=== PATIENT | male | born 1960 | race Caucasian/White ===

== ENCOUNTER 2022-07-04 06:50 | Day surgery (SDC) | payer OTHER ==
[2022-06-29 09:42] VITALS: BMI 32.8
[2022-07-04] MEDS: CELECOXIB 200 MG CAPSULE PO ONE ×2 (06:57→21:14)
[2022-07-04] MEDS ORDERED: ceFAZolin SODIUM 1 GM VIAL ONE ×2 (07:16→07:25)
[2022-07-04] MEDS ORDERED: PROPOFOL 80 ML ONE (07:23)
[2022-07-04] MEDS ORDERED: MIDAZOLAM HCL 2 MG/2 ML SINGLE DOSE VIAL ONE ×2 (07:24)
[2022-07-04] MEDS ORDERED: VANCOMYCIN 1,000 MG VIAL (RESTRICTED TO ID ONLY) ONE (07:28)
[2022-07-04] MEDS ORDERED: BUPIVACAINE LIPOSOME/PF (EXPAREL) 266 MG/20 ML VIAL ONE (07:40)
[2022-07-04] MEDS ORDERED: BUPIVACAINE HCL/PF 0.5% (5 MG/ML) 30 ML VIAL IJ ONE (07:40)
[2022-07-04] MEDS ORDERED: TRANEXAMIC ACID 1000 MG/10 ML VIAL IVPUSH ONE (08:00)
[2022-07-04] MEDS ORDERED: ONDANSETRON 4 MG/2 ML VIAL IVPUSH PRN ×2 (08:00→10:23)
[2022-07-04] MEDS ORDERED: LACTATED RINGERS SOLUTION 1,000 ML IV SCH ×2 (08:00→10:30)
[2022-07-04] MEDS ORDERED: CEFAZOLIN 2 GM in DEXTROSE 5%-WATER - 50 ML IVPB ONE (08:00)
[2022-07-04] MEDS ORDERED: BUPIVACAINE HCL/PF 0.5% (5MG/ML) 10 ML VIAL ONE (08:01)
[2022-07-04] MEDS ORDERED: SUCCINYLCHOLINE CHLORIDE 200 MG/10 ML SYRINGE ONE (08:24)
[2022-07-04] MEDS ORDERED: ONDANSETRON 4 MG/2 ML VIAL ONE (09:33)
[2022-07-04] MEDS ORDERED: DEXAMETHASONE SOD PHOSPHATE 4 MG/1 ML VIAL ONE (09:33)
[2022-07-04] MEDS ORDERED: oxyCODONE HCL 5 MG TABLET PO PRN ×2 (10:23→10:27)
[2022-07-04] MEDS ORDERED: ACETAMINOPHEN 500 MG TABLET (FP) ONE (10:51)
[2022-07-04] MEDS: ACETAMINOPHEN 500 MG TABLET (FP) PO SCH ×2 (10:55→17:30)
[2022-07-04] MEDS: CEFAZOLIN SODIUM 2 GM in DEXTROSE 5%-WATER 100 ML IVPB SCH (15:15)
[2022-07-04] MEDS: oxyCODONE HCL 5 MG TABLET PO PRN ×3 (15:16→21:17)
[2022-07-04] MEDS: SENNOSIDES/DOCUSATE COMBO (SENNA PLUS) TABLET (UD) PO SCH ×2 (19:55→21:16)
[2022-07-04] MEDS: MULTIVITAMINS (DAILY MVI) TABLET (FP) PO SCH (19:55)
[2022-07-04] MEDS: PANTOPRAZOLE 40 MG TABLET PO SCH (19:55)
[2022-07-04] MEDS: ATORVASTATIN CA 40 MG TABLET (FP) PO SCH (21:16)
[2022-07-04] MEDS: UMECLIDINIUM/VILANTEROL (ANORO) 62.5/25 MCG INHALER IH SCH (21:18)
[2022-07-04] MEDS: DORZOLAMIDE 2% HCL OPHTHALMIC SOLUTION 10 ML BOTTLE OU SCH (22:35)
[2022-07-05] MEDS: CEFAZOLIN SODIUM 2 GM in DEXTROSE 5%-WATER 100 ML IVPB SCH (00:08)
[2022-07-05] MEDS: oxyCODONE HCL 5 MG TABLET PO PRN ×7 (00:09→21:04)
[2022-07-05] MEDS: ACETAMINOPHEN 500 MG TABLET (FP) PO SCH ×4 (00:10→18:27)
[2022-07-05] MEDS: ASPIRIN 325 MG TABLET PO SCH (07:47)
[2022-07-05 08:13] LABS: HEMATOCRIT 42.1 % (35.4-49); HEMOGLOBIN 14.2 G/dL (11.7-16.9); MCH 30.2 pg (25.7-33.7); MCHC 33.8 g/dl (32.0-35.9); MEAN CELL VOLUME 89.4 fl (80-96); MEAN PLT VOLUME 7.1 fl (7.5-11.1); PLATELET COUNT 185.3 10^3/uL (134-434); RBC 4.71 10^6/uL (4.00-5.60)
[2022-07-05] MEDS: SENNOSIDES/DOCUSATE COMBO (SENNA PLUS) TABLET (UD) PO SCH ×2 (09:06→21:04)
[2022-07-05] MEDS: MULTIVITAMINS (DAILY MVI) TABLET (FP) PO SCH (09:06)
[2022-07-05] MEDS: PANTOPRAZOLE 40 MG TABLET PO SCH (09:06)
[2022-07-05] MEDS: DORZOLAMIDE 2% HCL OPHTHALMIC SOLUTION 10 ML BOTTLE OU SCH ×2 (09:23→21:06)
[2022-07-05 20:55] VITALS: RESP 18
[2022-07-05] MEDS: ATORVASTATIN CA 40 MG TABLET (FP) PO SCH (21:04)
[2022-07-05] MEDS: UMECLIDINIUM/VILANTEROL (ANORO) 62.5/25 MCG INHALER IH SCH (21:05)
[2022-07-06] MEDS: oxyCODONE HCL 5 MG TABLET PO PRN ×3 (00:49→09:08)
[2022-07-06] MEDS: ACETAMINOPHEN 500 MG TABLET (FP) PO SCH ×3 (02:57→11:30)
[2022-07-06] MEDS: ASPIRIN 325 MG TABLET PO SCH (08:18)
[2022-07-06] MEDS ORDERED: diphenhydrAMINE HCL 25 MG CAPSULE (FP) PO ONE (08:31)
[2022-07-06 08:47] LABS: HEMATOCRIT 42.1 % (35.4-49); HEMOGLOBIN 13.9 G/dL (11.7-16.9); MCH 29.5 pg (25.7-33.7); MCHC 32.9 g/dl (32.0-35.9); MEAN CELL VOLUME 89.5 fl (80-96); MEAN PLT VOLUME 7.6 fl (7.5-11.1); RDW 14.5 % (11.9-15.9); WHITE BLOOD COUNT 12.9 10^3/uL (4.0-10.8)
[2022-07-06 09:08] VITALS: BP 135/82; PULSE 77; TEMP 97.7
[2022-07-06] MEDS: SENNOSIDES/DOCUSATE COMBO (SENNA PLUS) TABLET (UD) PO SCH (09:08)
[2022-07-06] MEDS: MULTIVITAMINS (DAILY MVI) TABLET (FP) PO SCH (09:08)
[2022-07-06] MEDS: PANTOPRAZOLE 40 MG TABLET PO SCH (09:08)
[2022-07-06] MEDS: DORZOLAMIDE 2% HCL OPHTHALMIC SOLUTION 10 ML BOTTLE OU SCH (09:14)
== END 2022-07-06 11:58 | disposition home or self-care (01) ==
LOC: FASUSAT 06:50 → FM/S 06:50 → EDSTATUS 11:00 → FM/S 11:47 → FASUSAT 07-06 11:58
PROVIDERS: ATTEND Orthopaedic Surgery
PROC: 0SRC0J9 Replacement of Right Knee Joint with Synthetic Substitute, Cemented, Open Approach (ICD-10-PCS; principal; 2022-07-04 08:27)
DX: M17.11 Unilateral primary osteoarthritis, right knee (principal)
CPT/HCPCS: 20985; 27447; C1776; S2900; 36415; 73560-TC-RT-FY; 85027; 94760; 97116-GP; 97161-GP; C1713

== ENCOUNTER 2023-03-27 06:10 | Day surgery (SDC) | payer OTHER ==
[2023-03-23 17:15] VITALS: BMI 32.1
[2023-03-27] MEDS ORDERED: ceFAZolin SODIUM 1 GM VIAL ONE ×2 (07:23→08:17)
[2023-03-27] MEDS ORDERED: THROMBIN (BOVINE) 5,000 UNIT VIAL TP ONE (07:23)
[2023-03-27] MEDS ORDERED: MIDAZOLAM HCL 2 MG/2 ML SINGLE DOSE VIAL ONE (07:42)
[2023-03-27] MEDS ORDERED: BUPIVACAINE LIPOSOME/PF (EXPAREL) 266 MG/20 ML VIAL ONE (07:42)
[2023-03-27] MEDS ORDERED: BUPIVACAINE HCL/PF 0.5% (5MG/ML) 10 ML VIAL ONE (07:42)
[2023-03-27] MEDS ORDERED: ONDANSETRON 4 MG/2 ML VIAL IVPUSH PRN ×2 (07:46→10:12)
[2023-03-27] MEDS ORDERED: TRANEXAMIC ACID 1000 MG/10 ML VIAL IVPUSH ONE (07:46)
[2023-03-27] MEDS ORDERED: CEFAZOLIN 2 GM in DEXTROSE 5%-WATER - 50 ML IVPB ONE (07:46)
[2023-03-27] MEDS ORDERED: BUPIVICAINE 0.25%/MORPH PF/KETOROLAC - 51ML DISP.SYRINGE IA ONE (07:46)
[2023-03-27] MEDS ORDERED: ALBUTEROL SO4 HFA INHALER IH PRN (07:47)
[2023-03-27] MEDS ORDERED: LACTATED RINGERS SOLUTION 1,000 ML IV SCH (08:00)
[2023-03-27] MEDS ORDERED: DEXAMETHASONE SOD PHOSPHATE 4 MG/1 ML VIAL ONE (08:17)
[2023-03-27] MEDS ORDERED: SUCCINYLCHOLINE CHLORIDE 200 MG/10 ML SYRINGE ONE (08:18)
[2023-03-27] MEDS ORDERED: PROPOFOL 40 ML ONE (08:18)
[2023-03-27] MEDS ORDERED: PROPOFOL 20 ML ONE (09:19)
[2023-03-27] MEDS: MULTIVITAMINS (DAILY MVI) TABLET (FP) PO SCH (12:23)
[2023-03-27] MEDS: PANTOPRAZOLE 40 MG TABLET PO SCH (12:23)
[2023-03-27] MEDS: SENNOSIDES/DOCUSATE COMBO (SENNA PLUS) TABLET (UD) PO SCH ×2 (12:23→21:30)
[2023-03-27] MEDS: CEFAZOLIN SODIUM 2 GM in SODIUM CHLORIDE 100 ML IVPB SCH ×2 (16:30→23:50)
[2023-03-27] MEDS: oxyCODONE HCL 5 MG TABLET PO PRN ×2 (16:31→21:36)
[2023-03-27 20:14] VITALS: RESP 18
[2023-03-27] MEDS: ATORVASTATIN CA 40 MG TABLET (FP) PO SCH (21:30)
[2023-03-27] MEDS: UMECLIDINIUM/VILANTEROL (ANORO) 62.5/25 MCG INHALER IH SCH (21:35)
[2023-03-27] MEDS: DORZOLAMIDE 2% HCL OPHTHALMIC SOLUTION 10 ML BOTTLE OU SCH (21:36)
[2023-03-28] MEDS: oxyCODONE HCL 5 MG TABLET PO PRN ×5 (06:51→21:02)
[2023-03-28] MEDS: ASPIRIN 325 MG TABLET PO SCH (08:24)
[2023-03-28] MEDS: PANTOPRAZOLE 40 MG TABLET PO SCH (09:27)
[2023-03-28] MEDS: MULTIVITAMINS (DAILY MVI) TABLET (FP) PO SCH (09:27)
[2023-03-28] MEDS: SENNOSIDES/DOCUSATE COMBO (SENNA PLUS) TABLET (UD) PO SCH ×2 (09:27→21:01)
[2023-03-28] MEDS: DORZOLAMIDE 2% HCL OPHTHALMIC SOLUTION 10 ML BOTTLE OU SCH ×2 (09:28→21:01)
[2023-03-28] MEDS: UMECLIDINIUM/VILANTEROL (ANORO) 62.5/25 MCG INHALER IH SCH (20:59)
[2023-03-28] MEDS: ATORVASTATIN CA 40 MG TABLET (FP) PO SCH (21:01)
[2023-03-29] MEDS: oxyCODONE HCL 5 MG TABLET PO PRN ×3 (00:15→07:53)
[2023-03-29] MEDS: ASPIRIN 325 MG TABLET PO SCH (07:53)
[2023-03-29] MEDS: SENNOSIDES/DOCUSATE COMBO (SENNA PLUS) TABLET (UD) PO SCH (09:08)
[2023-03-29] MEDS: PANTOPRAZOLE 40 MG TABLET PO SCH (09:08)
[2023-03-29] MEDS: MULTIVITAMINS (DAILY MVI) TABLET (FP) PO SCH (09:08)
[2023-03-29] MEDS: DORZOLAMIDE 2% HCL OPHTHALMIC SOLUTION 10 ML BOTTLE OU SCH (09:10)
[2023-03-29 12:03] VITALS: BP 120/74; PULSE 66; TEMP 98
== END 2023-03-29 13:46 | disposition home health service (06) ==
LOC: FASUSAT 06:10 → FM/S 11:15 → FASUSAT 03-29 13:46
PROVIDERS: ATTEND Orthopaedic Surgery
PROC: 8E0Y0CZ Robotic Assisted Procedure of Lower Extremity, Open Approach (ICD-10-PCS; 2023-03-27)
PROC: 0SRD0L9 Replacement of Left Knee Joint with Medial Unicondylar Synthetic Substitute, Cemented, Open Approach (ICD-10-PCS; principal; 2023-03-27 08:27)
DX: M17.12 Unilateral primary osteoarthritis, left knee (principal)
CPT/HCPCS: 20985; 27446; C1776; S2900; 73560-TC-LT-FY; 94760; 97116-GP; 97162-GP; C1889

== ENCOUNTER 2023-04-01 13:41 | Emergency (ER) | payer OTHER, BC ==
[2023-04-01 14:23] VITALS: BP 149/90; PULSE 75; RESP 18; TEMP 98.9; BMI 32.1
== END 2023-04-01 15:46 | disposition home or self-care (01) ==
LOC: FER 13:41
DX: L53.9 Erythematous condition, unspecified (principal); M25.562 Pain in left knee; G89.18 Other acute postprocedural pain; Z48.01 Encounter for change or removal of surgical wound dressing
CPT/HCPCS: 99282-25